=== PATIENT | male | born 1955 | race Caucasian/White ===

== ENCOUNTER → 2018-12-14 | Outpatient (CLI) | payer MEDICARE, OTHER ==
[~2018-12-14] MED LIST: IOPAMIDOL 370 MG/ML 200 ML INFUS..BTL INJ ONE; SODIUM CHLORIDE 0.9% 250ML 250 ML ONE
[2018-12-14 08:55] LABS: BLOOD UREA NITROGEN 15 mg/dL (7-26); BUN/CREATININE RATIO 14 (6-25); CREATININE, SERUM 1.11 mg/dL (0.72-1.25); EST GLOMERULAR FILTRATION RATE > 60 ML/MIN (60-)
--- NOTE | 2018-12-14 11:00 | Diagnostic Imaging Report ---
EXAM: CT Abdomen and Pelvis WITH intravenous contrast - hematuria protocol INDICATION: Hematuria COMPARISON: None. TECHNIQUE: Abdomen and pelvis were scanned utilizing a multidetector helical scanner from the lung base to the pubic symphysis after administration of IV contrast. Coronal and sagittal reformations were obtained. Routine protocol was performed. Scan was performed when during portal venous phase. IV CONTRAST: 100 mL of Isovue-370 ORAL CONTRAST: None COMPLICATIONS: None RADIATION DOSE: Total DLP: 1791 mGy*cm Dose modulation, iterative reconstruction, and/or weight based adjustment of the mA/kV was utilized to reduce the radiation dose to as low as reasonably achievable. FINDINGS: LOWER THORAX: There is a 6 mm pulmonary nodule in the posterior right lower lobe. Mild bibasilar subsegmental atelectasis. No focal consolidation. HEPATOBILIARY: There are numerous cysts in the liver, the largest of which measures up to 3.5 cm in segment 6. Subcentimeter segment 2 and 3 hypodensities also likely represent cysts however are too small to adequately characterize. The gallbladder appears unremarkable. No biliary ductal dilatation. SPLEEN: No splenomegaly. PANCREAS: No focal masses or ductal dilatation. ADRENALS: No adrenal nodules. KIDNEYS/URETERS: No hydronephrosis. There is a 4 mm nonobstructing calculus in the lower pole of the right kidney. On delayed excretory phase images, the ureters are well opacified and there are entirety and demonstrate no evidence of urothelial soft tissue lesion. The bladder appears unremarkable with no wall thickening or mass. PELVIC ORGANS: Nonenlarged prostate with small punctate calcification. PERITONEUM / RETROPERITONEUM: No free air or fluid. LYMPH NODES: No lymphadenopathy. VESSELS: Atherosclerotic calcifications involve the abdominal aorta and major branches. GI TRACT: Colonic diverticulosis with no CT evidence of diverticulitis. Prior right hemicolectomy with anastomotic suture line at the distal transverse colon. BONES AND SOFT TISSUES: Mild degenerative changes of the visualized spine. No suspicious lytic or blastic lesions. IMPRESSION: No hydronephrosis, renal mass, or urothelial mass. Nonobstructing 4 mm stone in the lower pole the right kidney. Right lower lobe 6 mm pulmonary nodule. RECOMMENDATIONS: Single Solid lung nodule < 6 mm: In a low-risk patient, no routine follow-up imaging is recommended. In a high-risk patient, a non-contrast Chest CT at 12 months is optional. If performed and the nodule is stable at 12 months, no further follow-up is recommended. These guidelines do not apply to patients younger than 35 years, immunocompromised patients, and patients with cancer. F/u in patients with significant comorbidities as clinically warranted. For lung cancer screening, adhere to Lung-RADS guidelines. Reference: Radiology. 2017 Dec; 284(1):228- Signed by: Roselyn Flores MD on 12/14/2018 10:57 AM
== END ==
LOC: CT 07:58
PROVIDERS: ATTEND Urology
DX: R31.0 Gross hematuria (principal)
CPT/HCPCS: 36415; 74178; 82565; 84520; J7050; Q9967

== ENCOUNTER → 2019-01-30 | Outpatient (CLI) | payer MEDICARE, OTHER ==
[~2019-01-30] MED LIST changes: +ALBUTEROL SULF 0.083% NEB SOLN 3 ML NEB ONE; -IOPAMIDOL 370 MG/ML 200 ML INFUS..BTL INJ ONE; -SODIUM CHLORIDE 0.9% 250ML 250 ML ONE
--- NOTE | 2019-02-02 00:33 | Pulmonary Function Test ---
DATE OF STUDY: 01/30/2019 REFERRING PHYSICIAN: Dewey Olvera MD PULMONARY FUNCTION TESTING SPIROMETRY: Spirometry demonstrates nonspecific changes without ana abnormality. FEV1 was 2.60 L or 86% predicted and FVC was 3.11 L or 79% predicted in the setting of normal FEV1/FVC ratio. After bronchodilator administration, very mild obstruction was suggested by presence of a statistically significant FVC change of 28.5%. Flow volume loop was unremarkable. LUNG VOLUMES: Lung volumes as measured by nitrogen washout method demonstrate no evidence of restriction. Total lung capacity was 5.41 L or 90.9% predicted. DIFFUSION: Diffusion capacity was low normal at 16.50 mL per mmHg per minute or 70.2% predicted. SUMMARY: Very mild obstruction from bronchodilator change that was statistically significant. Otherwise, new normal PFTs. Clinical correlation is recommended. This is most often seen in asthma. MD SUZE Ambrosio/MODL /[id number] MTDD
== END | disposition home or self-care (01) ==
LOC: RESP 12:38
PROVIDERS: ATTEND Internal Medicine Critical Care Medicine
DX: R91.1 Solitary pulmonary nodule (principal); R09.02 Hypoxemia; G47.33 Obstructive sleep apnea (adult) (pediatric); I48.91 Unspecified atrial fibrillation
CPT/HCPCS: 94060; 94727; 94729

== ENCOUNTER → 2020-04-28 | Outpatient (CLI) | payer MEDICARE, OTHER ==
[~2020-04-28] MED LIST changes: -ALBUTEROL SULF 0.083% NEB SOLN 3 ML NEB ONE; +IOPAMIDOL 370 MG/ML 200 ML INFUS..BTL INJ ONE; +SODIUM CHLORIDE 0.9% 250ML 250 ML ONE
[2020-04-28 15:43] LABS: CREATININE, SERUM 1.37 mg/dL (0.72-1.25)
--- NOTE | 2020-04-29 10:49 | Diagnostic Imaging Report ---
CT of the abdomen and pelvis with contrast TECHNIQUE: CT of the abdomen and pelvis WITHOUT and WITH intravenous contrast and WITHOUT oral contrast. Dose modulation, iterative reconstruction, and/or weight-based adjustment of the mA/kV was utilized to reduce the radiation dose to as low as reasonably achievable. 3-D reconstructions were obtained and reviewed on a dedicated workstation. IV CONTRAST: 100 mL of Isovue 370 ORAL CONTRAST: Water RADIATION DOSE: Total DLP: 1663 mGy*cm COMPLICATIONS: None INDICATION: ^[id number] ^1615 ^GROSS HEMATURIA. COMPARISON: 12/14/2018. FINDINGS: LOWER THORAX: Mild dependent subsegmental atelectasis is noted. Stable right lower lobe subpleural 6 mm pulmonary nodule. HEPATOBILIARY: Stable multiple hypodense lesions throughout the liver, the largest of which are consistent with cysts. The smaller subcentimeter lesions are indeterminate. Gallbladder is unremarkable. No biliary ductal dilatation. SPLEEN: No splenomegaly. PANCREAS: No focal masses or ductal dilatation. ADRENALS: No adrenal nodules. KIDNEYS/URETERS: Noncontrast imaging is negative for renal calculus. Symmetric postcontrast enhancement is noted without suspicious mass or hydronephrosis. Negative for perinephric stranding. Ureters are not dilated. Symmetric excretion of contrast is identified into bilateral nondilated collecting systems. Negative for intraluminal filling defect. Ureters are well opacified. PELVIC ORGANS/BLADDER: Negative for wall thickening or surrounding inflammatory changes of the urinary bladder. Prostate is of normal size measuring 3.9 x 3.0 x 3.1 cm with a volume of 19 cc. PERITONEUM/RETROPERITONEUM: No free air or fluid. Bilateral fat-containing inguinal hernias are noted. LYMPH NODES: No lymphadenopathy. VESSELS: Unremarkable. GI TRACT: Negative for bowel obstruction or surrounding inflammatory changes. Stable anastomosis within the left mid abdomen. BONES AND SOFT TISSUES: No acute osseous abnormality. Stable advanced degenerative changes of the lower thoracic spine and focal advanced degenerative changes L5-S1. Multilevel posterior facet arthropathy is noted throughout the mid to lower lumbar spine. No suspicious destructive lesion is identified. Soft tissues are unremarkable. IMPRESSION: Negative for hydronephrosis, suspicious renal mass, upper urinary tract intraluminal mass or renal calculus. Stable right lower lobe 6 mm pulmonary nodule. Signed by: Trevon Jimenez MD on 04/29/2020 10:46 AM
== END ==
LOC: CT 15:04
PROVIDERS: ATTEND Urology
DX: R31.0 Gross hematuria (principal)
CPT/HCPCS: 36415; 74178; 82565; 84520; J7050; Q9967

== ENCOUNTER → 2020-11-19 | Outpatient (CLI) | payer MEDICARE, OTHER | LOC: CT 13:37 | PROVIDERS: ATTEND Internal Medicine Critical Care Medicine | DX: R09.02 Hypoxemia (principal); I48.91 Unspecified atrial fibrillation; G47.33 Obstructive sleep apnea (adult) (pediatric); R91.1 Solitary pulmonary nodule | CPT/HCPCS: 71250 ==

== ENCOUNTER → 2024-11-27 | Outpatient (REF) | payer MEDICARE, OTHER ==
[~2024-11-27] MED LIST changes: +GADOBENATE DIMEGLUMINE 1 ML IV ONE; -IOPAMIDOL 370 MG/ML 200 ML INFUS..BTL INJ ONE; -SODIUM CHLORIDE 0.9% 250ML 250 ML ONE
== END ==
LOC: MRI 09:29
PROVIDERS: ATTEND Pediatrics
DX: R20.0 Anesthesia of skin (principal); G64 Other disorders of peripheral nervous system
CPT/HCPCS: 70553; A9577